=== PATIENT | female | born 1935 | race Caucasian/White ===

== ENCOUNTER 2017-01-03 15:52 | Inpatient (IN) | payer MEDICARE ==
[2017-01-03] MEDS ORDERED: MAGNESIUM HYDROXIDE 30 ML UDC PO PRN (16:46)
[2017-01-03] MEDS: OXYCODONE HCL 5 MG TABLET PO PRN (20:06)
[2017-01-03] MEDS ORDERED: OXYCODONE HCL 5 MG TABLET PO ONE (21:11)
[2017-01-03] MEDS ORDERED: MAGNESIUM OXIDE 400 MG TABLET PO SCH (22:00)
[2017-01-03] MEDS ORDERED: TRAZODONE 50 MG TABLET PO SCH (22:00)
[2017-01-03] MEDS: ACETAMINOPHEN 500 MG TABLET PO SCH (22:41)
[2017-01-03] MEDS: SENNOSIDES/DOCUSATE SODIUM UD CAPSULE PO SCH (22:41)
[2017-01-03] MEDS: TEMAZEPAM 15 MG CAPSULE PO PRN (22:41)
[2017-01-03] MEDS: SIMVASTATIN 20 MG TABLET PO SCH (22:42)
[2017-01-03] MEDS: ASPIRIN 325 MG TAB ENTERIC-COATED PO SCH (22:42)
[2017-01-04] MEDS: OXYCODONE HCL 5 MG TABLET PO PRN ×7 (01:48→22:21)
[2017-01-04] MEDS: ACETAMINOPHEN 500 MG TABLET PO SCH ×2 (06:41→14:43)
[2017-01-04] MEDS: LEVOTHYROXINE SODIUM 50 MCG TABLET PO SCH (06:41)
[2017-01-04] MEDS: PANTOPRAZOLE SODIUM 40 MG TABLET PO SCH (06:42)
--- NOTE | 2017-01-04 07:14 | History & Physical ---
History of Present Illness - Date Date of Service for History & Physical: 01/04/17 - History of Present Illness Admitting Diagnosis: post op LTKA History of Present Illness: 81yo female with physical deconditioning s/p total left knee arthroplasty. She has history of arthritis of the left knee, chronic low back pain on chronic opioid therapy, arthritis of the shoulders, high cholesterol, cosntipation, heartburn and hypothyroidism Patient presents to [facility] following LTKA on 01/02/17. The procedure was uncomplicated as was the the post-op course. Patient's pain was controlled on oral oxycodone 10mg po q4H in addition to her chronic fentanyl patch. She was discharged on POD #1. 01/04/17- Patient's pain has not been well controlled since transferring here. She had only received oxycodone 5mg throughout the night. Surgeon was contacted for clarification on pain medication. Since that time she has been doing better. pain is now back down to a 5. was able to participate with PT this morning. currently lives alone but plans to discharge home from [facility] to her son' s house for some time before returning to her home. Her daughter is planning on coming from [place] to stay for a while when she does eventually go home. General - Cognitive Patterns Orientation: Oriented x3 - Communication Preferred Language?: Uzbek Surgical Rn Required: No Level of Education: College Preferred Method of Learning: Seeing, Doing Comprehension Ability: No Impairment Able to Read: Yes Able to Write: Yes Select best description of speech pattern: Clear Speech Ability to express ideas and wants: Understood Understanding verbal content: Understands - Psychosocial Well-Being Usual Living Arrangement: Alone - Physical Functioning Activity Level: Up with assist x1 Turning: With partial assist ROM Ability: Moves all extremities Assistive Devices: 2 Wheel Walker Ambulation Ability: Needs Assist Bed Mobility: Needs Assist Transfer Ability: Needs Assist Bathing Ability: Needs Assist Personal Hygiene: Needs Assist Dressing Ability: Needs Assist Eating (Feeding) Ability: Independent Toileting Ability: Needs Assist Administer Own Medication: Dependent - Continence Bladder Pattern: Nocturia - Dental Status Unable to examine: No Broken or loosely fitting full or partial dentures: No No natural teeth or tooth fragment(s) (edentulous): No Abnormal mouth tissue (ulcers, masses, oral lesions, etc.): No Obvious or likely cavity or broken natural teeth: No Inflamed or bleeding gums or loose natural teeth: No Mouth/facial pain, discomfort or difficulty chewing: No - Nutrition Screening Poor oral intake > 1 week: No Unplanned weight loss in specified time frame: No Nutrition Support via tube feedings or parenteral nutrition: No Pressure Ulcer: No Significantly underweight define as BMI <18.5 kg/m2: No Albumin <2.5mg/dL: No Persistent nausea/vomiting/diarrhea >3 days: No Difficulty chewing/swallowing/mouth sores: No Admitting Diagnosis: No Nutrition Risk Score: Low Risk Past Medical History - SOCIAL HISTORY Smoking Status: Never smoker Alcohol Use: Rare Alcohol Use Comment: glass of wine at specila occasions - SURGICAL HISTORY Past Surgical History: left total knee arthroplasty with Marielos implants . left shoulder surgery 08/2016. right reverse shoulder arthroplasty 2013. left breast lumpectomy 1993. 2 part lower back surgery-has 2- 14" rods 2005. right bunionectomy. colonoscopy with polypectomy. ectopic surgery 1959. bilateral cataract surgery 2013. hysterectomy 2004. axillary lymph node dissection on left. tonsilectomy - RESPIRATORY Hx Respiratory Disorders: No - CARDIOVASCULAR Hx Cardio Disorders: No Comment:: hyperlipidemia - NEURO Hx Neuro Disorders: No - GI Hx GI Disorders: Yes Comment:: esophageal achlasia - Hx Genitourinary Disorders: No - ENDOCRINE Hx Endocrine Disorders: Yes Hx Diabetes: No Hx Thyroid Disease: Yes - MUSCULOSKELETAL Hx Arthritis: Yes - PSYCH Hx Psych Problems: No - HEMATOLOGY/ONCOLOGY Hx Hematology/Oncology Disorders: Yes Hx Cancer: Yes (left breast CA 1993) Hx Radiation Therapy: Yes Family Medical History Any Significant Family History?: No H&P Meds/Allergies - Allergies Allergies: Allergies Allergy/AdvReac Type Severity Reaction Status Date / Time Penicillins Allergy RASH Verified 01/03/17 19:28 Sulfa (Sulfonamide Allergy RASH Verified 01/03/17 19:28 Antibiotics) - Active Medications Active Medications: Current Medications Acetaminophen (Tylenol 500mg Tab) 1,000 mg PO Q8H [facility] Last Admin: 01/04/17 06:41 Dose: 1,000 mg Aspirin (Ecotrin (Ec)) 325 mg PO BID [facility] Last Admin: 01/03/17 22:42 Dose: 325 mg Calcium Carbonate/Glycine (Tums) 500 mg PO DAILY [facility] Celecoxib (Celebrex) 200 mg PO DAILY [facility] Fentanyl (Duragesic) 25 mcg TD Q72HR [facility] Stop: 01/12/17 10:01 Levothyroxine Sodium (Synthroid) 50 mcg PO DAILYTHY [facility] Last Admin: 01/04/17 06:41 Dose: 50 mcg Magnesium Hydroxide (Milk Of Magnesium) 30 ml PO QHS PRN PRN Reason: CONSTIPATION Miscellaneous (Remove Patch) 1 each TD Q72HR [facility] Oxycodone HCl (Oxy Ir) 5 mg PO Q4H PRN PRN Reason: Pain - General Last Admin: 01/04/17 05:37 Dose: 5 mg Pantoprazole Sodium (Protonix) 40 mg PO DAILYAC [facility] Last Admin: 01/04/17 06:42 Dose: 40 mg Senna/Docusate Sodium (Senna Plus) 1 each PO BID [facility] Last Admin: 01/03/17 22:41 Dose: 1 each Simvastatin (Zocor) 20 mg PO QHS [facility] Last Admin: 01/03/17 22:42 Dose: 20 mg Temazepam (Restoril) 15 mg PO QHS PRN PRN Reason: INSOMNIA Last Admin: 01/03/17 22:41 Dose: 15 mg Vitamin D (Vitamin D3) 1,000 unit PO DAILY [facility] Physical Exam - Vital Signs Vital Signs: Vital Signs - Last 24 Hrs Temp Pulse Resp BP Pulse Ox 01/03/17 19:35 99.4 F 86 16 118/83 97 - General General Appearance: Alert, Oriented x3, Cooperative, No acute distress - Head Head exam: Normal inspection - Eye Eye exam: Normal appearance, PERRL - Neck Neck exam: Normal inspection, Full ROM. negative: Tenderness - Respiratory Respiratory exam: Normal lung sounds bilaterally. negative: Respiratory distress - Cardiovascular Cardiovascular Exam: Regular rate, Normal rhythm, Normal heart sounds - GI/Abdominal GI/Abdominal exam: Soft, Normal bowel sounds. negative: Tenderness - Extremities Extremities exam: Normal inspection, Full ROM, Normal capillary refill, Other ( wound edges well approximated without erythema. ). negative: Tenderness Discharge Potential - Discharge Needs Community Services Used Prior to Admission: None Patient Discharge Plan Description: Return Home Community Services Needed at Discharge: Physical Therapy Plan - Swing Bed Certification Initial Certification Due: 01/03/17 14 Day Re-Cert Due: 01/17/17 44 Day Re-Cert Due: 02/16/17 74 Day Re-Cert Due: 03/18/17 - Detailed Diagnosis and Plan (1) Physical deconditioning Current Visit: Yes Status: Acute Base Code: R53.81 - OTHER MALAISE Comment : 01/04/17- patient is deconditioned due to recent hospitalization for left tka. -will work with pt/ot M-F to improve strength and physical function (2) S/P total knee arthroplasty Current Visit: Yes Status: Acute Base Code: Z96.659 - PRESENCE OF UNSPECIFIED ARTIFICIAL KNEE JOINT Comment: 01/04/17- patient's pain currently uncontrolled. Orthopedic surgeon international manager contacted for clarification on pain medication she was receiving while inpatient as she had multiple opioids ordered in addition to her fentanyl. She had been receiving oxycodone 10/325mg po Q4H which had been working well -will resume oxycoodone 10/325mg po q4H -fentanyl 25mcg will be due for replacement 01/05/17 at 1500 -she is to have her wound dressing changed q72H. it was changed today 01/04/17 at 0600. (3) DVT prophylaxis Current Visit: Yes Status: Acute Base Code: [id number] - Comment: 01/04/17- per ortho patient is on aspirin 325mg po bid -will encourage ambulation wtih pt/ot as tolerating (4) Full code status Current Visit: Yes Status: Acute Base Code: Z78.9 - OTHER SPECIFIED HEALTH STATUS Comment: 01/04/17- patient is full code
--- NOTE | 2017-01-04 07:15 | Swing Bed Certification/Recert ---
Initial Certification Due: 01/03/17 14 Day Re-Cert Due: 01/17/17 44 Day Re-Cert Due: 02/16/17 74 Day Re-Cert Due: 03/18/17 CERTIFICATION 3 CERTIFICATION OF PATIENT ADMISSION Required at time of admission. Due: 01/03/17 I certify that SNF services are required to be given on an inpatient basis because of the above named patient's need for usp care on a continuing basis for the condition(s) for which he/she was receiving inpatient hospital services prior to his/her transfer to the SNF. The patient's current needs for skilled care includes: [physical deconditioning making her unsafe for discharge home, s/p total left knee arthroplasty, pain management ] Ida Alberts 01/04/17
[2017-01-04] MEDS ORDERED: OXYCODONE HCL 5 MG TABLET PO PRN (07:36)
[2017-01-04] MEDS: SENNOSIDES/DOCUSATE SODIUM UD CAPSULE PO SCH ×2 (09:33→22:13)
[2017-01-04] MEDS: CHOLECALCIFEROL 1,000 UNIT TABLET PO SCH (09:33)
[2017-01-04] MEDS: CELECOXIB 100 MG CAPSULE PO SCH (09:33)
[2017-01-04] MEDS: CALCIUM CARBONATE 500 MG TAB.CHEW PO SCH (09:33)
[2017-01-04] MEDS: ASPIRIN 325 MG TAB ENTERIC-COATED PO SCH ×2 (09:33→22:13)
[2017-01-04] MEDS: POLYETHYLENE GLY 17 GM PACKET PO SCH (11:14)
--- NOTE | 2017-01-04 14:20 | Rehab Evaluation ---
Patient Information - Patient Information Diagnosis: Deconditioning s/p L TKA Ordered Treatment: PT Evaluate and Treat Status: Initial Evaluation Surgery: Yes (L TKA) Date of Surgery: 01/02/17 (at [facility] in [place], Dr. Montoya) History: Detail (Pt had progressive degeneration of L knee that required use of cane for ambulation prior to surgery.) Past Med/Malika Hx Detail: Detail Past Medical/Surgical Hx: PAST MEDICAL/SURGICAL HISTORY Past Surgical History left total knee arthroplasty with Marielos implants 01/02/17 left shoulder surgery 08/2016 right reverse shoulder arthroplasty 2013 left breast lumpectomy 1993 2 part lower back surgery-has 2- 14" rods 2005 right bunionectomy colonoscopy with polypectomy ectopic surgery 1959 bilateral cataract surgery 2013 hysterectomy 2004 axillary lymph node dissection on left tonsilectomy PMH - Respiratory Hx Respiratory Disorders No PMH - Cardiovascular Hx Cardiovascular Disorders No Comment: hyperlipidemia PMH - Neuro Hx Neurological Disorders No PMH - GI Hx Gastrointestinal Disorders Yes Comment: esophageal achlasia PMH - Hx Genitourinary Disorders No PMH - Endocrine Hx Endocrine Disorders Yes Hx Diabetes No Hx Thyroid Disease Yes PMH - Musculoskeletal Hx Arthritis Yes PMH - Psych Hx Psychiatric Problems No PMH - Hematology/Oncology Hx Hematology/Oncology Yes Disorders Hx Cancer Yes: left breast CA 1993 Hx Radiation Therapy Yes Premorbid Status: Detail (Pt was independent in all self-care, ADLs and IADLs, including driving. She has help for housekeeping, but did laundry, cooking. She had difficulty ascending/descending stairs because of the L knee, so doesn' t use the upstairs of her house very much. The person who does housekeeping can take things up/down. She has three steps into the house w/a handrail at one entrance to the home; another entrance has a ramp. 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 Her about 1-1/2 years ago. She wanted to be near her son while she recovered.) Precautions: Sun, Fall - Time With Patient Total Time Spent With Patient (Min): 50 Treatment Procedures: Detail (PT Evaluation) Subjective Information - Subjective Information Per Patient (Reports having had a very uncomfortable night and morning due to pain in the L knee. Was not able to eat much of her breakfast due to pain. Somewhat better now, but still uncomfortable.) Objective Data - Pain Pain Present: Yes Pain Intensity: 6 (L Knee) Pain Scale Used: Numeric (1 - 10) - Mental Status Patient Orientation: Oriented x3 - Visual Perception Appears within normal limits for therapeutic activities - ROM Not within normal limits (Appears to have near full extension of L knee, but has bulky wrap. She is able to achieve 90 degrees flexion easily while sitting on edge of bed.) - Strength/Tone Not within normal limits (3-/5 L hip flexion, abduction, adduction, extension, L knee extension, 3/5 L knee flexion, 4/5 L ankle df. R LE is grossly 4/5. Poor isometric recruitment of L quadriceps.) - Coordination Appears within normal limits for therapeutic activities - Bed Mobility Needs Assist (Required minimal assist for moving L LE over edge of bed when getting out of bed and getting back in, and for coming to sitting from supine. She was able to scoot in bed independently in long sitting, but needed verbal cues to bridge to scoot.) - Transfers Needs Assist (Verbal cues to place L foot forward when going to sit on toilet or bed. Came to standing from bed w/SBA, from toilet w/min assist.) - Balance Balance Sitting: Good Balance Standing: Fair (CGA for standing to manipulate clothing during toileting.) - Sensation Intact (Notes chronic diminished sensation L LE due to back surgery in 2005.) - Gait Detail (Ambulated w/front wheeled walker from bedside out into jacobson, to bathroom and back to bed w/CGA, SBA, WBAT L LE (about 45 feet total).) Therapy Assessment - Therapy Assessment Detail (Pt exhibits mobility impairments consistent w/post operative L TKA. She is a good candidate for short-term rehabilitation for safe return to home.) Patient Education - Patient Education Teaching Topic: Equipment Use, Exercise/Activity Response: Return Demonstration, Reinforcement Needed, Verbalize Understanding Teaching Method: Discussion, Demonstration, Handout Teaching Recipient: Patient Barriers To Learning: None Problem List - Problem List Physical Therapy Problem List: Detail (1. Difficulty w/bed mobility. 2. Supervision/assist required for transfers. 3. Difficulty walking. 4. LE weakness 5. Decreased activity tolerance.) Goals - Goals Physical Therapy Goals: 1. Independent w/bed mobility and sit/stand transfers to front-wheeled walker. 2. Safely and independently ambulate over household distances/surfaces w/front-wheeled walker. 3. Exhibit 4/5 strength or better in major muscle groups of L LE for stability w/ambulation. 4. Independent with basic home program. Prognosis - Prognosis Good Plan - Plan Physical Therapy Plan: Pt will be seen 1-2 times/week M-F to address above goals.
--- NOTE | 2017-01-04 15:56 | Physical Therapy Tx Note ---
Physical Therapy Tx Note - Treatment Note Tolerated: Good Total Time Spent With Patient: 30 Physical Therapy Tx Note: Detail (Patient states 5/10 pain in left knee. Patient transferred supine to sit independently. Patient transferred sit to and from stand CGA x1. Patient ambulated 13 feet with wheeled walker SBA x1. Patient transferred sit to and from stand CGA x1. Patient ambulated 30 feet with wheeled walker SBA x1. Patient performed the following exercises x10 reps each: seated heel raises, seated toe raises, seated marching, LAQ right, hamstring sets, quad sets, and heel slides. Patient transferred sit to and from stand CGA x1. Patient ambulated 5 feet with wheeled walker SBA x1. Patient tolerated treatment well. Patient displays decreased strength and endurance with hamstring sets, quad sets, and seated marching. Patient displays decreased knee flexion and extension ROM with seated heel slides. Patient required verbal cueing to keep walker close to body with ambulation and to straighten knee when transferring stand to sit. Patient was left seated in chair with call light within reach.) Physical Therapy Problem List: Detail (1. Difficulty w/bed mobility. 2. Supervision/assist required for transfers. 3. Difficulty walking. 4. LE weakness 5. Decreased activity tolerance.) Physical Therapy Goals: 1. Independent w/bed mobility and sit/stand transfers to front-wheeled walker. 2. Safely and independently ambulate over household distances/surfaces w/front-wheeled walker. 3. Exhibit 4/5 strength or better in major muscle groups of L LE for stability w/ambulation. 4. Independent with basic home program. Prognosis: Good Physical Therapy Plan: Pt will be seen 1-2 times/week M- to address above goals.
[2017-01-04] MEDS: SIMVASTATIN 20 MG TABLET PO SCH (22:15)
[2017-01-05] MEDS: ACETAMINOPHEN 500 MG TABLET PO SCH ×4 (01:25→23:36)
[2017-01-05] MEDS: TEMAZEPAM 15 MG CAPSULE PO PRN ×2 (02:04→23:35)
[2017-01-05] MEDS: OXYCODONE HCL 5 MG TABLET PO PRN ×5 (07:16→23:35)
[2017-01-05] MEDS: LEVOTHYROXINE SODIUM 50 MCG TABLET PO SCH (07:17)
[2017-01-05] MEDS: PANTOPRAZOLE SODIUM 40 MG TABLET PO SCH (07:17)
[2017-01-05] MEDS: FENTANYL 25MCG PATCH TD SCH (09:26)
[2017-01-05] MEDS: CELECOXIB 100 MG CAPSULE PO SCH (09:26)
[2017-01-05] MEDS: CALCIUM CARBONATE 500 MG TAB.CHEW PO SCH (09:26)
[2017-01-05] MEDS: SENNOSIDES/DOCUSATE SODIUM UD CAPSULE PO SCH ×2 (09:26→23:36)
[2017-01-05] MEDS: POLYETHYLENE GLY 17 GM PACKET PO SCH (09:26)
[2017-01-05] MEDS: CHOLECALCIFEROL 1,000 UNIT TABLET PO SCH (09:26)
[2017-01-05] MEDS: ASPIRIN 325 MG TAB ENTERIC-COATED PO SCH ×2 (09:26→23:35)
[2017-01-05] MEDS: REMOVE PATCH 1 EACH MISC TD SCH (09:27)
--- NOTE | 2017-01-05 09:53 | Rehab Evaluation ---
Patient Information - Patient Information Diagnosis: Deconditioning s/p L TKA Ordered Treatment: OT Evaluate and Treat Status: Initial Evaluation Surgery: Yes (L TKA) Date of Surgery: 01/02/17 (at [facility] in [place], Dr. Montoya) History: Detail (Pt had progressive degeneration of L knee that required use of cane for ambulation prior to surgery.) Past Medical/Surgical Hx: PAST MEDICAL/SURGICAL HISTORY Past Surgical History left total knee arthroplasty with Marielos implants 01/02/17 left shoulder surgery 08/2016 right reverse shoulder arthroplasty 2013 left breast lumpectomy 1993 2 part lower back surgery-has 2- 14" rods 2005 right bunionectomy colonoscopy with polypectomy ectopic surgery 1959 bilateral cataract surgery 2013 hysterectomy 2004 axillary lymph node dissection on left tonsilectomy PMH - Respiratory Hx Respiratory Disorders No PMH - Cardiovascular Hx Cardiovascular Disorders No Comment: hyperlipidemia PMH - Neuro Hx Neurological Disorders No Hx Seizures No PMH - GI Hx Gastrointestinal Disorders Yes Comment: esophageal achlasia PMH - Hx Genitourinary Disorders No PMH - Endocrine Hx Endocrine Disorders Yes Hx Diabetes No Hx Thyroid Disease Yes PMH - Musculoskeletal Hx Arthritis Yes PMH - Psych Hx Psychiatric Problems No PMH - Hematology/Oncology Hx Hematology/Oncology Yes Disorders Hx Cancer Yes: left breast CA 1993 Hx Radiation Therapy Yes Premorbid Status: Detail (Pt was independent in all self-care, ADLs and IADLs, including driving. She has help for housekeeping, but did some laundry, cooking. She had difficulty ascending/descending stairs because of the L knee, so doesn't use the upstairs of her house very much. The person who does housekeeping can take things up/down. She has three steps into the house w/a handrail at one entrance to the home; another entrance has a ramp. There is one step into the living room. She has a tub/shower combination with grab bars and prefers to take a tub bath. She has an elevated toilet with grab bars. 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 Her about 1-1/2 years ago. She wanted to be near her son while she recovered.) Precautions: [place], Fall - Time With Patient Total Time Spent With Patient (Min): 50 Treatment Procedures: Detail (OT eval low complexity) Subjective Information - Subjective Information Per Patient Objective Data - Pain Pain Present: Yes (11/20 left knee) - Mental Status Patient Orientation: Oriented x3 - Visual Perception Appears within normal limits for therapeutic activities - ROM Not within normal limits (Miguel UE AROM WNL except left shoulder which is limited to approx. 100 degrees flexion. She reports having shoulder surgery this spring and reports no functional limitations due to decreased ROM.) - Strength/Tone Within normal limits (Miguel UE MMT 4+/5 within AROM limitations.) - Coordination Appears within normal limits for therapeutic activities - Transfers Needs Assist (CG assist for sit to stand from toilet, chair height surfaces.) - Balance Balance Sitting: Good Balance Standing: Fair - Sensation Intact - Gait Detail (Pt able to ambulate 15 feet with 2 wheeled walker and CG assist.) - ADL's/IADL's Detail (Pt able to complete partial sponge bath at sink in sitting, requires assist for back and left lower leg/foot. Pt able to doff PJ top, bottom and slippers Indly, donned underpants with modified technique, pants with min assist to start over left foot and to button/zip, donned shirt Indly, max assist for socks and shoes.) Therapy Assessment - Therapy Assessment Detail (Decreased Ind with total body bathing and total body dressing, decreased endurance and decreased functional mobility needed for safe and Ind return home.) Problem List - Problem List Physical Therapy Problem List: Detail (1. Difficulty w/bed mobility. 2. Supervision/assist required for transfers. 3. Difficulty walking. 4. LE weakness 5. Decreased activity tolerance.) Occupational Therapy Problem List: Detail (1. Decreased Ind with total body dressing 2. Decreased Ind with bathing 3. Decreased endurance needed for safe and Ind ADLs. 4. Decreased Ind with functional mobility) Goals - Goals Physical Therapy Goals: 1. Independent w/bed mobility and sit/stand transfers to front-wheeled walker. 2. Safely and independently ambulate over household distances/surfaces w/front-wheeled walker. 3. Exhibit 4/5 strength or better in major muscle groups of L LE for stability w/ambulation. 4. Independent with basic home program. Occupational Therapy Goals: 1. Pt will be Ind with total body dressing 2. Pt will be Ind with bathing/showering 3. Pt will be Ind with bed mobility and ambulation to allow safe and Ind ADLs. 4. Pt will demonstrate improved endurance needed for safe and Ind ADLs. Prognosis - Prognosis Good Plan - Plan Physical Therapy Plan: Pt will be seen 1-2 times/week M- to address above goals. Occupational Therapy Plan: OT 2-4 times per week to address self cares, functional mobility, endurance to allow safe and Ind return home.
--- NOTE | 2017-01-05 14:42 | Physical Therapy Tx Note ---
Physical Therapy Tx Note - Treatment Note Tolerated: Good Total Time Spent With Patient: 25 Physical Therapy Tx Note: Detail (The patient was in bed when PT arrived. The patient ambulated 75 feet x 1 with wheeled walker and supervision for safety WBAT L LE. The patient's L knee AROM was measured, flexion 78 degrees, extension -10 degrees. The patient completed the following L LE strengthening exercises: gluteal sets, quad sets, hamstring sets, ankle pumps all x 10 reps, SAQ x 6 reps, assisted SLR x 3 reps, seated heel slides x 3 reps, supine heel slides x 8 reps. The patient's call light was placed in reach. The patient was isssued a home exercise program to complete over the weekend.) Physical Therapy Problem List: Detail (1. Difficulty w/bed mobility. 2. Supervision/assist required for transfers. 3. Difficulty walking. 4. LE weakness 5. Decreased activity tolerance.) Physical Therapy Goals: 1. Independent w/bed mobility and sit/stand transfers to front-wheeled walker. 2. Safely and independently ambulate over household distances/surfaces w/front-wheeled walker. 3. Exhibit 4/5 strength or better in major muscle groups of L LE for stability w/ambulation. 4. Independent with basic home program. Physical Therapy Plan: Pt will be seen 1-2 times/week M- to address above goals.
[2017-01-05] MEDS: SIMVASTATIN 20 MG TABLET PO SCH (23:36)
[2017-01-06] MEDS: OXYCODONE HCL 5 MG TABLET PO PRN ×4 (08:21→22:51)
[2017-01-06] MEDS: ACETAMINOPHEN 500 MG TABLET PO SCH ×3 (08:47→23:00)
[2017-01-06] MEDS: PANTOPRAZOLE SODIUM 40 MG TABLET PO SCH (08:47)
[2017-01-06] MEDS: LEVOTHYROXINE SODIUM 50 MCG TABLET PO SCH (08:47)
[2017-01-06] MEDS: SENNOSIDES/DOCUSATE SODIUM UD CAPSULE PO SCH ×2 (10:06→22:51)
[2017-01-06] MEDS: CALCIUM CARBONATE 500 MG TAB.CHEW PO SCH (10:06)
[2017-01-06] MEDS: ASPIRIN 325 MG TAB ENTERIC-COATED PO SCH ×2 (10:06→22:52)
[2017-01-06] MEDS: CELECOXIB 100 MG CAPSULE PO SCH (10:07)
[2017-01-06] MEDS: POLYETHYLENE GLY 17 GM PACKET PO SCH (10:07)
[2017-01-06] MEDS: CHOLECALCIFEROL 1,000 UNIT TABLET PO SCH (10:07)
[2017-01-06] MEDS: TRAMADOL HCL 50 MG TABLET PO PRN ×2 (11:18→17:26)
[2017-01-06] MEDS: SIMVASTATIN 20 MG TABLET PO SCH (22:52)
[2017-01-06] MEDS: TEMAZEPAM 15 MG CAPSULE PO PRN (22:52)
[2017-01-07] MEDS: TRAMADOL HCL 50 MG TABLET PO PRN ×2 (02:30→17:06)
[2017-01-07] MEDS: OXYCODONE HCL 5 MG TABLET PO PRN ×5 (04:10→22:36)
[2017-01-07] MEDS: ACETAMINOPHEN 500 MG TABLET PO SCH ×3 (08:44→22:41)
[2017-01-07] MEDS: PANTOPRAZOLE SODIUM 40 MG TABLET PO SCH (08:45)
[2017-01-07] MEDS: LEVOTHYROXINE SODIUM 50 MCG TABLET PO SCH (08:45)
[2017-01-07] MEDS: CALCIUM CARBONATE 500 MG TAB.CHEW PO SCH (10:11)
[2017-01-07] MEDS: CHOLECALCIFEROL 1,000 UNIT TABLET PO SCH (10:11)
[2017-01-07] MEDS: CELECOXIB 100 MG CAPSULE PO SCH (10:12)
[2017-01-07] MEDS: SENNOSIDES/DOCUSATE SODIUM UD CAPSULE PO SCH ×2 (10:12→22:37)
[2017-01-07] MEDS: POLYETHYLENE GLY 17 GM PACKET PO SCH (10:12)
[2017-01-07] MEDS: ASPIRIN 325 MG TAB ENTERIC-COATED PO SCH ×2 (10:12→22:37)
[2017-01-07] MEDS: TEMAZEPAM 15 MG CAPSULE PO PRN (22:37)
[2017-01-07] MEDS: SIMVASTATIN 20 MG TABLET PO SCH (22:38)
[2017-01-08] MEDS: OXYCODONE HCL 5 MG TABLET PO PRN ×5 (03:47→21:56)
[2017-01-08] MEDS: ACETAMINOPHEN 500 MG TABLET PO SCH ×3 (07:03→22:09)
[2017-01-08] MEDS: PANTOPRAZOLE SODIUM 40 MG TABLET PO SCH (07:04)
[2017-01-08] MEDS: LEVOTHYROXINE SODIUM 50 MCG TABLET PO SCH (07:04)
[2017-01-08] MEDS: FENTANYL 25MCG PATCH TD SCH (10:04)
[2017-01-08] MEDS: ASPIRIN 325 MG TAB ENTERIC-COATED PO SCH ×2 (10:05→21:57)
[2017-01-08] MEDS: POLYETHYLENE GLY 17 GM PACKET PO SCH (10:06)
[2017-01-08] MEDS: CELECOXIB 100 MG CAPSULE PO SCH (10:06)
[2017-01-08] MEDS: CALCIUM CARBONATE 500 MG TAB.CHEW PO SCH (10:06)
[2017-01-08] MEDS: SENNOSIDES/DOCUSATE SODIUM UD CAPSULE PO SCH ×2 (10:06→21:56)
[2017-01-08] MEDS: CHOLECALCIFEROL 1,000 UNIT TABLET PO SCH (10:06)
[2017-01-08] MEDS: REMOVE PATCH 1 EACH MISC TD SCH (11:03)
--- NOTE | 2017-01-08 12:04 | Occupational Therapy Tx Note ---
Occupational Therapy Tx Note - Treatment Note Tolerated: Good Total Time Spent With Patient: 35 (ther activity) Occupational Therapy Treatment Note: Detail (S: Pt supine, resting in bed. O: She reports washing up and getting dressed this am with assist for LE ADLs due to difficulty bending over. Supine to sit with HOB elevated and use of bed rail. Sit to stand and amb to surgical waiting room with 2 wheeled walker Indly. Pt rested for several minutes, c/o knee pain and weakness in leg. Pt sit to stand and amb back to room Indly. Completed 10 reps of bending to feet in sitting for knee flexion and to increase mobility needed for LE ADLs. A: Pt fatigued and reports increased knee soreness after exercise) Occupational Therapy Problem List: Detail (1. Decreased Ind with total body dressing 2. Decreased Ind with bathing 3. Decreased endurance needed for safe and Ind ADLs. 4. Decreased Ind with functional mobility) Occupational Therapy Goals: 1. Pt will be Ind with total body dressing 2. Pt will be Ind with bathing/showering 3. Pt will be Ind with bed mobility and ambulation to allow safe and Ind ADLs. 4. Pt will demonstrate improved endurance needed for safe and Ind ADLs. Prognosis: Good Occupational Therapy Plan: OT 2-4 times per week to address self cares, functional mobility, endurance to allow safe and Ind return home.
[2017-01-08] MEDS: TRAMADOL HCL 50 MG TABLET PO PRN (14:24)
--- NOTE | 2017-01-08 16:48 | Physical Therapy Tx Note ---
Physical Therapy Tx Note - Treatment Note Tolerated: Good Total Time Spent With Patient: 30 Physical Therapy Tx Note: Detail (The patient was up in chair when PT arrived. The patient completed LE strengthening exercies in a seated position: seated heel slides, quad sets, adductor squeezes, resisted hip abduction, LAQ all x 5 reps. (due to pain complaints). The patient ambulated 50 feet x 1 with wheeled walker independently WBAT on the L LE. The patient's L knee ROM was flexion 75 degrees.) Physical Therapy Problem List: Detail (1. Difficulty w/bed mobility. 2. Supervision/assist required for transfers. 3. Difficulty walking. 4. LE weakness 5. Decreased activity tolerance.) Physical Therapy Goals: 1. Independent w/bed mobility and sit/stand transfers to front-wheeled walker. 2. Safely and independently ambulate over household distances/surfaces w/front-wheeled walker. 3. Exhibit 4/5 strength or better in major muscle groups of L LE for stability w/ambulation. 4. Independent with basic home program. Physical Therapy Plan: Pt will be seen 1-2 times/week M-F to address above goals.
[2017-01-08] MEDS: TEMAZEPAM 15 MG CAPSULE PO PRN (21:56)
[2017-01-08] MEDS: SIMVASTATIN 20 MG TABLET PO SCH (21:57)
[2017-01-09] MEDS: PANTOPRAZOLE SODIUM 40 MG TABLET PO SCH (06:15)
[2017-01-09] MEDS: ACETAMINOPHEN 500 MG TABLET PO SCH ×3 (06:15→22:05)
[2017-01-09] MEDS: LEVOTHYROXINE SODIUM 50 MCG TABLET PO SCH (06:15)
[2017-01-09] MEDS: OXYCODONE HCL 5 MG TABLET PO PRN ×4 (06:16→19:51)
[2017-01-09] MEDS: TRAMADOL HCL 50 MG TABLET PO PRN (07:38)
[2017-01-09] MEDS: CELECOXIB 100 MG CAPSULE PO SCH (09:41)
[2017-01-09] MEDS: ASPIRIN 325 MG TAB ENTERIC-COATED PO SCH ×2 (09:42→22:06)
[2017-01-09] MEDS: POLYETHYLENE GLY 17 GM PACKET PO SCH (09:43)
[2017-01-09] MEDS: CALCIUM CARBONATE 500 MG TAB.CHEW PO SCH (09:43)
[2017-01-09] MEDS: SENNOSIDES/DOCUSATE SODIUM UD CAPSULE PO SCH ×2 (09:43→22:06)
[2017-01-09] MEDS: CHOLECALCIFEROL 1,000 UNIT TABLET PO SCH (09:44)
--- NOTE | 2017-01-09 11:49 | Occupational Therapy Tx Note ---
Occupational Therapy Tx Note - Treatment Note Tolerated: Good Total Time Spent With Patient: 45 (ADL) Occupational Therapy Treatment Note: Detail (S: Pt resting in bed, ready for shower. O: Supine to sit Indly. Amb to toilet and completed toileting Indly. Doffed PJ top, bottoms, slippers and underpants Indly. Pt completed showering in sitting with hand held shower and use of grab bar. Dried self Indly. Donned shirt, underpants, pants, socks and tennis shoes Indly using modified dressing technique. She was able to tie right shoe but required assist for left shoe due to knee stiffness and pain. Pt amb to sink and completed oral hygiene and brushed hair Indly. Pt amb back to chair with 2 wheeled walker Indly. A: Ind with functional mobility in room, Ind with showering in sitting, Ind with total body dressing with exception of tying shoe) Occupational Therapy Problem List: Detail (1. Decreased Ind with total body dressing 2. Decreased Ind with bathing 3. Decreased endurance needed for safe and Ind ADLs. 4. Decreased Ind with functional mobility) Occupational Therapy Goals: 1. Pt will be Ind with total body dressing 2. Pt will be Ind with bathing/showering 3. Pt will be Ind with bed mobility and ambulation to allow safe and Ind ADLs. 4. Pt will demonstrate improved endurance needed for safe and Ind ADLs. Prognosis: Good Occupational Therapy Plan: OT 2-4 times per week to address self cares, functional mobility, endurance to allow safe and Ind return home.
--- NOTE | 2017-01-09 13:56 | Physical Therapy Tx Note ---
Physical Therapy Tx Note - Treatment Note Tolerated: Good Total Time Spent With Patient: 40 Physical Therapy Tx Note: Detail (The patient had less complaints of L knee pain. The patient ambulated with wheeled walker 300 feet plus WBAT L LE independently. The patient completed LE exercises including: seated LAQ, hamstring curls x 7 reps, SAQ, heel slides with a ball, quad sets , hamstrign sets all x 7 reps, SLR unassisted x 3 reps. L knee AROM flexion 80 degrees, estension -10 degrees.) Physical Therapy Problem List: Detail (1. Difficulty w/bed mobility. 2. Supervision/assist required for transfers. 3. Difficulty walking. 4. LE weakness 5. Decreased activity tolerance.) Physical Therapy Goals: 1. Independent w/bed mobility and sit/stand transfers to front-wheeled walker. 2. Safely and independently ambulate over household distances/surfaces w/front-wheeled walker. 3. Exhibit 4/5 strength or better in major muscle groups of L LE for stability w/ambulation. 4. Independent with basic home program. Physical Therapy Plan: Pt will be seen 1-2 times/week M-F to address above goals.
[2017-01-09] MEDS: SIMVASTATIN 20 MG TABLET PO SCH (22:06)
[2017-01-09] MEDS: TEMAZEPAM 15 MG CAPSULE PO PRN (22:06)
[2017-01-10] MEDS: OXYCODONE HCL 5 MG TABLET PO PRN ×4 (01:41→16:00)
[2017-01-10] MEDS: TRAMADOL HCL 50 MG TABLET PO PRN (04:55)
[2017-01-10] MEDS: PANTOPRAZOLE SODIUM 40 MG TABLET PO SCH (08:20)
[2017-01-10] MEDS: LEVOTHYROXINE SODIUM 50 MCG TABLET PO SCH (08:21)
[2017-01-10] MEDS: ACETAMINOPHEN 500 MG TABLET PO SCH ×3 (08:21→22:21)
[2017-01-10] MEDS: ASPIRIN 325 MG TAB ENTERIC-COATED PO SCH ×2 (09:30→22:20)
[2017-01-10] MEDS: SENNOSIDES/DOCUSATE SODIUM UD CAPSULE PO SCH ×2 (09:30→22:20)
[2017-01-10] MEDS: CALCIUM CARBONATE 500 MG TAB.CHEW PO SCH (09:30)
[2017-01-10] MEDS: POLYETHYLENE GLY 17 GM PACKET PO SCH (09:30)
[2017-01-10] MEDS: CELECOXIB 100 MG CAPSULE PO SCH (09:30)
[2017-01-10] MEDS: CHOLECALCIFEROL 1,000 UNIT TABLET PO SCH (09:31)
--- NOTE | 2017-01-10 11:29 | Occupational Therapy Tx Note ---
Occupational Therapy Tx Note - Treatment Note Tolerated: Good Total Time Spent With Patient: 20 (ADL) Occupational Therapy Treatment Note: Detail (S: Pt finishing breakfast, reports knee is sore from increased activity yesterday. O: Pt able to doff PJ top, bottom, underpants and socks Indly. Donned shirt, underpants, pants, socks and tennis shoes Indly including tying tennis shoes. Pt able to demonstrate modified LE dressing techiques Indly. A: Pt is safe and Ind with total body dressing using modified dressing techniques) Occupational Therapy Problem List: Detail (1. Decreased Ind with total body dressing 2. Decreased Ind with bathing 3. Decreased endurance needed for safe and Ind ADLs. 4. Decreased Ind with functional mobility) Occupational Therapy Goals: 1. Pt will be Ind with total body dressing 2. Pt will be Ind with bathing/showering 3. Pt will be Ind with bed mobility and ambulation to allow safe and Ind ADLs. 4. Pt will demonstrate improved endurance needed for safe and Ind ADLs. Prognosis: Good Occupational Therapy Plan: OT 2-4 times per week to address self cares, functional mobility, endurance to allow safe and Ind return home.
--- NOTE | 2017-01-10 14:52 | Physical Therapy Tx Note ---
Physical Therapy Tx Note - Treatment Note Tolerated: Good Total Time Spent With Patient: 45 Physical Therapy Tx Note: Detail (Patient states 4/10 pain in left knee. Patient transferred supine to sit independently. Patinet transferred sit to and from stand SBA x1. Patient ambulated 182 feet with wheeled walker SBA x1, 132.5 feet with wheeled walker SBA x1. Patient transferred sit to and from stand SBA x1. Patient ambulated 5 feet x2 with wheeled walker SBA x1. Patient ascended and descended 6 steps CGA x1. Patient transferred sit to supine independently. Patient performed the following exercises x10 reps each: LAQ, quad sets, SLR, physioball knee flex/ext ROM, SAQ with physioball, and hamstring sets with physioball. Patient transferred supine to sit independently. Patient transferred sit to and from stand SBA x1. Patient ambulated 76 feet with wheeled walker SBA x1. Patient transferred sit to and from stand SBA x1. Patient tolerated treatment well. Patient displays decreased strength and endurance with quad sets, LAQ, SAQ with physioball, hamstring sets with physioball, and SLR. Patient displays decreased knee flexion ROM with physioball knee flex/ext ROM. Patient was left seated in chair with call light within reach.) Physical Therapy Problem List: Detail (1. Difficulty w/bed mobility. 2. Supervision/assist required for transfers. 3. Difficulty walking. 4. LE weakness 5. Decreased activity tolerance.) Physical Therapy Goals: 1. Independent w/bed mobility and sit/stand transfers to front-wheeled walker. 2. Safely and independently ambulate over household distances/surfaces w/front-wheeled walker. 3. Exhibit 4/5 strength or better in major muscle groups of L LE for stability w/ambulation. 4. Independent with basic home program. Prognosis: Good Physical Therapy Plan: Pt will be seen 1-2 times/week M- to address above goals.
[2017-01-10] MEDS ORDERED: HYDROCODONE/APAP 10/325 TABLET PO ONE (20:00)
[2017-01-10] MEDS: SIMVASTATIN 20 MG TABLET PO SCH (22:22)
[2017-01-10] MEDS: TEMAZEPAM 15 MG CAPSULE PO PRN (22:57)
[2017-01-11] MEDS: OXYCODONE HCL 5 MG TABLET PO PRN ×4 (03:55→21:36)
[2017-01-11] MEDS: ACETAMINOPHEN 500 MG TABLET PO SCH ×3 (06:24→22:54)
[2017-01-11] MEDS: LEVOTHYROXINE SODIUM 50 MCG TABLET PO SCH (06:24)
[2017-01-11] MEDS: PANTOPRAZOLE SODIUM 40 MG TABLET PO SCH (06:24)
--- NOTE | 2017-01-11 07:22 | Physician Progress Note ---
Subjective - Date Date of Progress Note: 01/11/17 - Admitting Diagnosis Diagnosis: post op LTKA - Subjective Nursing Care Plan Problem List Activity Intolerance (Swing Bed) Start: 01/03/17 19: 25 Freq: Status: Active Created 01/03/17 19:25 [facility]Rec: 01/03/17 19:25 [id number]) Altered Peripheral Tissue Perfusion Start: 01/03/17 19: 22 Freq: Status: Active Created 01/03/17 19:22 [facility]Rec: 01/03/17 19:22 [id number]) High Risk: Post-Op Complications Start: 01/03/17 19: 22 Freq: Status: Active Created 01/03/17 19:22 [facility]Rec: 01/03/17 19:22 [id number]) Impaired Skin Integrity Start: 01/03/17 19: 22 Freq: Status: Active Created 01/03/17 19:22 [facility]Rec: 01/03/17 19:22 [id number]) Knowledge Deficit (Swing Bed) Start: 01/03/17 19: 25 Freq: Status: Active Created 01/03/17 19:25 [facility]Rec: 01/03/17 19:25 [id number]) Knowledge Deficit: Total Knee Start: 01/03/17 19: 22 Freq: Status: Active Created 01/03/17 19:22 [facility] [place]Rec: 01/03/17 19:22 [id number]) Pain (Swing Bed) Start: 01/03/17 19: 25 Freq: Status: Active Created 01/03/17 19:25 [facility]Rec: 01/03/17 19:25 [id number]) General - Cognitive Patterns Speech: Normal Thought Process: Intact Thought Content: Normal - Communication Select best description of speech pattern: Clear Speech Ability to express ideas and wants: Understood Understanding verbal content: Understands - Mood and Behavior Patterns Appearance: Well Groomed Mood: Normal Attitude: Cooperative Motor Activity: Calm Affect: Appropriate Hallucinations: Denies - Physical Functioning Activity Level: Up with assist x1 Turning: With partial assist ROM Ability: Moves all extremities Assistive Devices: 2 Wheel Walker Ambulation Ability: Needs Assist Bed Mobility: Independent Transfer Ability: Independent Bathing Ability: Independent Personal Hygiene: Independent Dressing Ability: Independent Eating (Feeding) Ability: Independent Toileting Ability: Independent Administer Own Medication: Needs Assist - Continence Bowel Pattern: Normal for Patient Bladder Pattern: Normal Meds/Allergies - Allergies Allergies Allergy/AdvReac Type Severity Reaction Status Date / Time Penicillins Allergy RASH Verified 01/03/17 19:28 Sulfa (Sulfonamide Allergy RASH Verified 01/03/17 19:28 Antibiotics) - Active Medications Current Medications Acetaminophen (Tylenol 500mg Tab) 1,000 mg PO Q8H [facility] Last Admin: 01/11/17 06:24 Dose: 1,000 mg Aspirin (Ecotrin (Ec)) 325 mg PO BID [facility] Last Admin: 01/10/17 22:20 Dose: 325 mg Calcium Carbonate/Glycine (Tums) 500 mg PO DAILY [facility] Last Admin: 01/10/17 09:30 Dose: 500 mg Celecoxib (Celebrex) 200 mg PO DAILY [facility] Last Admin: 01/10/17 09:30 Dose: 200 mg Fentanyl (Duragesic) 25 mcg TD Q72HR [facility] Stop: 01/12/17 10:01 Last Admin: 01/08/17 10:04 Dose: 25 mcg Levothyroxine Sodium (Synthroid) 50 mcg PO DAILYTHY [facility] Last Admin: 01/11/17 06:24 Dose: 50 mcg Magnesium Hydroxide (Milk Of Magnesium) 30 ml PO QHS PRN PRN Reason: CONSTIPATION Miscellaneous (Remove Patch) 1 each TD Q72HR [facility] Last Admin: 01/08/17 11:03 Dose: 1 each Oxycodone HCl (Oxy Ir) 5 mg PO Q4H PRN PRN Reason: Pain - General Last Admin: 01/06/17 22:51 Dose: 5 mg Oxycodone HCl (Oxy Ir) 10 mg PO Q4H PRN PRN Reason: Pain - Severe (8-10) Last Admin: 01/11/17 03:55 Dose: 10 mg Pantoprazole Sodium (Protonix) 40 mg PO DAILYAC [facility] Last Admin: 01/11/17 06:24 Dose: 40 mg Polyethylene Glycol (Miralax) 17 gm PO DAILY [facility] Last Admin: 01/10/17 09:30 Dose: 17 gm Senna/Docusate Sodium (Senna Plus) 1 each PO BID [facility] Last Admin: 01/10/17 22:20 Dose: 1 each Simvastatin (Zocor) 20 mg PO QHS [facility] Last Admin: 01/10/17 22:22 Dose: 20 mg Temazepam (Restoril) 15 mg PO QHS PRN PRN Reason: INSOMNIA Last Admin: 01/10/17 22:57 Dose: 15 mg Tramadol HCl (Ultram) 50 mg PO Q8H PRN PRN Reason: pain Last Admin: 01/10/17 04:55 Dose: 50 mg Vitamin D (Vitamin D3) 1,000 unit PO DAILY [facility] Last Admin: 01/10/17 09:31 Dose: 1,000 unit Objective - Vital Signs Vital Signs: Vital Signs - Last 24 Hrs Temp Pulse Resp BP Pulse Ox 01/10/17 10:00 98.1 F 79 18 135/68 95 - General General Appearance: Alert, Oriented x3, Cooperative, No acute distress - Head Head exam: Normal inspection - Eye Eye exam: Normal appearance, PERRL - Neck Neck exam: Normal inspection, Full ROM. negative: Tenderness - Respiratory Respiratory exam: Normal lung sounds bilaterally. negative: Respiratory distress - Cardiovascular Cardiovascular Exam: Regular rate, Normal rhythm, Normal heart sounds - GI/Abdominal GI/Abdominal exam: Soft, Normal bowel sounds. negative: Tenderness - Extremities Extremities exam: Normal inspection, Full ROM, Normal capillary refill, Other ( wound edges well approximated without erythema. ). negative: Tenderness Discharge Potential - Discharge Needs Community Services Used Prior to Admission: None Patient Discharge Plan Description: Return Home Community Services Needed at Discharge: Physical Therapy Plan - Swing Bed Certification Initial Certification Due: 01/03/17 14 Day Re-Cert Due: 01/17/17 44 Day Re-Cert Due: 02/16/17 74 Day Re-Cert Due: 03/18/17
--- NOTE | 2017-01-11 09:28 | Discharge Summary ---
Providers Discharge Summary Date: 01/11/17 Date of admission: 01/03/17 19:08 Expected Date of Discharge: 01/13/17 Attending physician: RAVEN BRISCOE Physical Exam - Vital Signs Vital Signs: Vital Signs - Last 24 Hrs Temp Pulse Resp BP Pulse Ox 01/10/17 10:00 98.1 F 79 18 135/68 95 - General General Appearance: Alert, Oriented x3, Cooperative, No acute distress - Head Head exam: Normal inspection - Eye Eye exam: Normal appearance, PERRL - Neck Neck exam: Normal inspection, Full ROM. negative: Tenderness - Respiratory Respiratory exam: Normal lung sounds bilaterally. negative: Respiratory distress - Cardiovascular Cardiovascular Exam: Regular rate, Normal rhythm, Normal heart sounds - GI/Abdominal GI/Abdominal exam: Soft, Normal bowel sounds. negative: Tenderness - Extremities Extremities exam: Normal inspection, Full ROM, Normal capillary refill, Other ( wound edges well approximated without erythema. ). negative: Tenderness Hospitalization - Hospitalization Admission Diagnosis: post op LTKA - Problem List/Discharge Diagnosis (1) Full code status Current Visit: Yes Status: Acute Base Code: Z78.9 - OTHER SPECIFIED HEALTH STATUS Comment: 01/13/17- patient remained full code (2) Physical deconditioning Current Visit: Yes Status: Acute Base Code: R53.81 - OTHER MALAISE Comment : 01/13/17- patient is deconditioned due to recent hospitalization for left tka. -continue home PT/OT to improve strength and physical function (3) S/P total knee arthroplasty Current Visit: Yes Status: Acute Base Code: Z96.659 - PRESENCE OF UNSPECIFIED ARTIFICIAL KNEE JOINT Comment: 01/13/17- - home health services- PT/OT/nursing - resume adequate pain control ( oxycoodone 10/325mg po q4H & fentanyl 25mcg Q 72 H- New patch placed 01/11/17) - she is to have her wound dressing changed q72H. - follow up with PCP 01/22/17 as scheduled. - Hospitalization Course Disposition: Home Health Service Hospital Course: 81yo female with physical deconditioning s/p total left knee arthroplasty. She has history of arthritis of the left knee, chronic low back pain on chronic opioid therapy, arthritis of the shoulders, high cholesterol, cosntipation, heartburn and hypothyroidism Patient presents to [facility] for [facility] following LTKA on 01/02/17. The procedure was uncomplicated as was the the post-op course. Patient's pain was controlled on oral oxycodone 10mg po q4H in addition to her chronic fentanyl patch. She was discharged on POD #1. 01/04/17- Patient's pain has not been well controlled since transferring here. She had only received oxycodone 5mg throughout the night. Surgeon was contacted for clarification on pain medication. Since that time she has been doing better. pain is now back down to a 5. was able to participate with PT this morning. currently lives alone but plans to discharge home from [facility] to her son' s house for some time before returning to her home. Her daughter is planning on coming from [place] to stay for a while when she does eventually go home. 01/11/17- patient sitting in wheel chair. uncomfortably due to 6/10 pain. she has not received morning pain medication and started therapy w/o this. otherwise, she states she feels well. normal GI/ output. normal appetite. Therapy feels as if she's doing very well from that stand point. tolerated stairs yesterday. Condition at Discharge: (1) Good Discharge Plan - Discharge Instructions Activity at Discharge: As Per Physical Therapy Diet at Discharge: Regular Diet
[2017-01-11] MEDS: ASPIRIN 325 MG TAB ENTERIC-COATED PO SCH ×2 (10:14→21:36)
[2017-01-11] MEDS: FENTANYL 25MCG PATCH TD SCH (10:14)
[2017-01-11] MEDS: CELECOXIB 100 MG CAPSULE PO SCH (10:14)
[2017-01-11] MEDS: REMOVE PATCH 1 EACH MISC TD SCH (10:15)
[2017-01-11] MEDS: POLYETHYLENE GLY 17 GM PACKET PO SCH (10:15)
[2017-01-11] MEDS: CALCIUM CARBONATE 500 MG TAB.CHEW PO SCH (10:16)
[2017-01-11] MEDS: SENNOSIDES/DOCUSATE SODIUM UD CAPSULE PO SCH ×2 (10:16→21:37)
[2017-01-11] MEDS: CHOLECALCIFEROL 1,000 UNIT TABLET PO SCH (10:16)
--- NOTE | 2017-01-11 17:07 | Physical Therapy Tx Note ---
Physical Therapy Tx Note - Treatment Note Tolerated: Good Total Time Spent With Patient: 30 Physical Therapy Tx Note: Detail (Patient states 5.5/10 pain in left knee. Patient was dressing in restroom when [employer] arrived. Patient ambulated 13 feet with wheeled walker SBA x1. Patient transferred sit to and from stand SBA x1. Patient ambulated 182 feet with wheeled walker SBA x1. Due to nursing getting medications for patient and patient needing a restroom break had to discontinue treatment, and continue after a break. Patient was supine in bed when [employer] arrived again. Patient states 4.5/10 pain in left knee. Patient transferred supine to sit independently. Patient transferred sit to and from stand SBA x1. Patient ambulated 364 feet with wheeled walker SBA x1. Patient performed the following exercises x10 reps each: seated heel raises, seated toe raises, seated hip flexion, LAQ, quad sets, and seated heel slides. Patient tolerated treatment well. Patient displays decreased strength and endurance with quad sets, seated hip flexion, and LAQ. Patient displays decreased knee flexion/ extension ROM with seated heel slides. Patient was instructed to do exercises throughout the day. Patient was left seated in chair with call light within reach.) Physical Therapy Problem List: Detail (1. Difficulty w/bed mobility. 2. Supervision/assist required for transfers. 3. Difficulty walking. 4. LE weakness 5. Decreased activity tolerance.) Physical Therapy Goals: 1. Independent w/bed mobility and sit/stand transfers to front-wheeled walker. 2. Safely and independently ambulate over household distances/surfaces w/front-wheeled walker. 3. Exhibit 4/5 strength or better in major muscle groups of L LE for stability w/ambulation. 4. Independent with basic home program. Prognosis: Good Physical Therapy Plan: Pt will be seen 1-2 times/week M- to address above goals.
[2017-01-11] MEDS: SIMVASTATIN 20 MG TABLET PO SCH (21:37)
[2017-01-11] MEDS: TEMAZEPAM 15 MG CAPSULE PO PRN (22:54)
[2017-01-12] MEDS: OXYCODONE HCL 5 MG TABLET PO PRN ×4 (03:17→19:59)
[2017-01-12] MEDS: TRAMADOL HCL 50 MG TABLET PO PRN (04:17)
--- NOTE | 2017-01-12 05:09 | Discharge Summary ---
Providers Discharge Summary Date: 01/12/17 Date of admission: 01/03/17 19:08 Expected Date of Discharge: 01/13/17 Attending physician: RAVEN BRISCOE Physical Exam - Vital Signs Vital Signs: Vital Signs - Last 24 Hrs Temp Pulse Resp BP Pulse Ox 01/11/17 10:00 97.5 F L 93 H 16 93/59 96 - General General Appearance: Alert, Oriented x3, Cooperative, No acute distress - Head Head exam: Normal inspection - Eye Eye exam: Normal appearance, PERRL - Neck Neck exam: Normal inspection, Full ROM. negative: Tenderness - Respiratory Respiratory exam: Normal lung sounds bilaterally. negative: Respiratory distress - Cardiovascular Cardiovascular Exam: Regular rate, Normal rhythm, Normal heart sounds - GI/Abdominal GI/Abdominal exam: Soft, Normal bowel sounds. negative: Tenderness - Extremities Extremities exam: Normal inspection, Full ROM, Normal capillary refill, Other ( wound edges well approximated without erythema. ). negative: Tenderness Hospitalization - Hospitalization Admission Diagnosis: post op LTKA - Problem List (1) Physical deconditioning Current Visit: Yes Status: Acute Base Code: R53.81 - OTHER MALAISE Comment : 01/13/17- patient is deconditioned due to recent hospitalization for left tka. -continue home PT/OT to improve strength and physical function (2) S/P total knee arthroplasty Current Visit: Yes Status: Acute Base Code: Z96.659 - PRESENCE OF UNSPECIFIED ARTIFICIAL KNEE JOINT Comment: 01/13/17- - home health services- PT/OT/nursing - resume adequate pain control ( oxycoodone 10/325mg po q4H & fentanyl 25mcg Q 72 H- New patch placed 01/11/17) - she is to have her wound dressing changed q72H. - follow up with PCP 01/22/17 as scheduled. (3) Full code status Current Visit: Yes Status: Acute Base Code: Z78.9 - OTHER SPECIFIED HEALTH STATUS Comment: 01/13/17- patient remained full code - Hospitalization Course Disposition: Home Health Service Hospital Course: 81yo female with physical deconditioning s/p total left knee arthroplasty. She has history of arthritis of the left knee, chronic low back pain on chronic opioid therapy, arthritis of the shoulders, high cholesterol, cosntipation, heartburn and hypothyroidism Patient presents to [facility] following LTKA on 01/02/17. The procedure was uncomplicated as was the the post-op course. Patient's pain was controlled on oral oxycodone 10mg po q4H in addition to her chronic fentanyl patch. She was discharged on POD #1. 01/04/17- Patient's pain has not been well controlled since transferring here. She had only received oxycodone 5mg throughout the night. Surgeon was contacted for clarification on pain medication. Since that time she has been doing better. pain is now back down to a 5. was able to participate with PT this morning. currently lives alone but plans to discharge home from [facility] to her son' s house for some time before returning to her home. Her daughter is planning on coming from [place] to stay for a while when she does eventually go home. 01/11/17- patient sitting in wheel chair. uncomfortably due to 6/10 pain. she has not received morning pain medication and started therapy w/o this. otherwise, she states she feels well. normal GI/ output. normal appetite. Therapy feels as if she's doing very well from that stand point. tolerated stairs yesterday. 01/13- patient feeling well. pain controlled. no new concerns. would like prescriptions refilled. excited to get home. Condition at Discharge: (1) Good Discharge Medications - Discharge Medications Prescriptions: Simvastatin [Zocor] 20 mg PO QHS #30 Temazepam [Restoril] 15 mg PO QHS PRN #9 cap PRN Reason: Insomnia Acetaminophen [Tylenol 500Mg Tab] 1,000 mg PO Q8H #90 Calcium Carbonate [Tums] 500 mg PO DAILY #30 tab.chew Celecoxib [Celebrex] 200 mg PO DAILY #60 cap Fentanyl [Duragesic] 25 mcg TD Q72H #3 patch Levothyroxine Sodium [Synthroid] 50 mcg PO DAILYTHY #30 Oxycodone HCl [Oxy Ir] 10 mg PO Q4H PRN #54 PRN Reason: Pain - Severe (8-10) Pantoprazole Sodium [Protonix] 40 mg PO DAILYAC #30 Polyethylene Glycol 3350 [Miralax] 17 gm PO DAILY 30 Days Sennosides/Docusate Sodium [Senna Plus] 1 each PO BID #60 Tramadol HCl [Ultram] 50 mg PO Q8H PRN #20 PRN Reason: pain Home Medications: Ambulatory Orders Acetaminophen [Tylenol 500Mg Tab] 1,000 mg PO Q8H #90 01/13/17 [Last Taken Unknown] Calcium Carbonate [Tums] 500 mg PO DAILY #30 tab.chew 01/13/17 [Last Taken Unknown] Celecoxib [Celebrex] 200 mg PO DAILY #60 cap 01/13/17 [Last Taken Unknown] Fentanyl [Duragesic] 25 mcg TD Q72H #3 patch 01/13/17 [Last Taken Unknown] Levothyroxine Sodium [Synthroid] 50 mcg PO DAILYTHY #30 01/13/17 [Last Taken Unknown] Oxycodone HCl [Oxy Ir] 10 mg PO Q4H PRN #54 01/13/17 [Last Taken Unknown] Pantoprazole Sodium [Protonix] 40 mg PO DAILYAC #30 01/13/17 [Last Taken Unknown] Polyethylene Glycol 3350 [Miralax] 17 gm PO DAILY 30 Days 01/13/17 [Last Taken Unknown] Sennosides/Docusate Sodium [Senna Plus] 1 each PO BID #60 01/13/17 [Last Taken Unknown] Simvastatin [Zocor] 20 mg PO QHS #30 01/13/17 [Last Taken Unknown] Temazepam [Restoril] 15 mg PO QHS PRN #9 cap 01/13/17 [Last Taken Unknown] Tramadol HCl [Ultram] 50 mg PO Q8H PRN #20 01/13/17 [Last Taken Unknown] Discharge Plan - Discharge Instructions Activity at Discharge: As Per Physical Therapy Diet at Discharge: Regular Diet Additional Instructions: continue medications. fill prescriptions. follow up with family doctor on January 22 as scheduled. return as needed
[2017-01-12] MEDS: ACETAMINOPHEN 500 MG TABLET PO SCH ×3 (07:59→22:03)
[2017-01-12] MEDS: PANTOPRAZOLE SODIUM 40 MG TABLET PO SCH (07:59)
[2017-01-12] MEDS: LEVOTHYROXINE SODIUM 50 MCG TABLET PO SCH (07:59)
[2017-01-12] MEDS: CELECOXIB 100 MG CAPSULE PO SCH (09:03)
[2017-01-12] MEDS: POLYETHYLENE GLY 17 GM PACKET PO SCH (09:04)
[2017-01-12] MEDS: CALCIUM CARBONATE 500 MG TAB.CHEW PO SCH (09:04)
[2017-01-12] MEDS: SENNOSIDES/DOCUSATE SODIUM UD CAPSULE PO SCH ×2 (09:04→22:02)
[2017-01-12] MEDS: ASPIRIN 325 MG TAB ENTERIC-COATED PO SCH ×2 (09:04→22:02)
[2017-01-12] MEDS: CHOLECALCIFEROL 1,000 UNIT TABLET PO SCH (09:04)
--- NOTE | 2017-01-12 11:37 | Rehab Discharge Summary ---
Patient Information - Patient Information Diagnosis: Deconditioning s/p L TKA Ordered Treatment: PT Evaluate and Treat Surgery: Yes (L TKA) Date of Surgery: 01/02/17 (at [facility] in [place], Dr. Montoya) History: Detail (Pt had progressive degeneration of L knee that required use of cane for ambulation prior to surgery.) Past Med/Malika Hx Detail: Detail Past Medical/Surgical Hx: PAST MEDICAL/SURGICAL HISTORY Past Surgical History left total knee arthroplasty with Marielos implants 01/02/17 left shoulder surgery 08/2016 right reverse shoulder arthroplasty 2013 left breast lumpectomy 1993 2 part lower back surgery-has 2- 14" rods 2005 right bunionectomy colonoscopy with polypectomy ectopic surgery 1959 bilateral cataract surgery 2013 hysterectomy 2004 axillary lymph node dissection on left tonsilectomy PMH - Respiratory Hx Respiratory Disorders No PMH - Cardiovascular Hx Cardiovascular Disorders No Comment: hyperlipidemia PMH - Neuro Hx Neurological Disorders No Hx Seizures No PMH - GI Hx Gastrointestinal Disorders Yes Comment: esophageal achlasia PMH - Hx Genitourinary Disorders No PMH - Endocrine Hx Endocrine Disorders Yes Hx Diabetes No Hx Thyroid Disease Yes PMH - Musculoskeletal Hx Arthritis Yes PMH - Psych Hx Psychiatric Problems No PMH - Hematology/Oncology Hx Hematology/Oncology Yes Disorders Hx Cancer Yes: left breast CA 1993 Hx Radiation Therapy Yes Premorbid Status: Detail (Pt was independent in all self-care, ADLs and IADLs, including driving. She has help for housekeeping, but did some laundry, cooking. She had difficulty ascending/descending stairs because of the L knee, so doesn't use the upstairs of her house very much. The person who does housekeeping can take things up/down. She has three steps into the house w/a handrail at one entrance to the home; another entrance has a ramp. There is one step into the living room. She has a tub/shower combination with grab bars and prefers to take a tub bath. She has an elevated toilet with grab bars. 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 She manages the finances of the farm, and her son Alex in [place] is involved in the management of the farm as well. Her about 1-1/2 years ago. She wanted to be near her son while she recovered.) Precautions: [place], Fall - Time With Patient Treatment Procedures: Detail (Re-evaluation, therapuetic activity.) Subjective Information - Subjective Information Per Patient (The patient has level 6 pain in L knee.) Objective Data - Mental Status Patient Orientation: Oriented x3 - Visual Perception Appears within normal limits for therapeutic activities - ROM Not within normal limits (The patient's L knee AROM is flexion 89 degrees, extension seated -20 degrees, supine -5 degrees.) - Strength/Tone Not within normal limits (The patient's L LE strength was hip flexors 4-/5, hip abductors, adductors and extensors 4/5, knee extensors 3+/5, knee flexors 4-/5 , ankle musculature 4+/5. Improved recruitment of L quadriceps.) - Bed Mobility Independent - Transfers Independent (The patient is independent with sit to and from stand transfer and toilet transfer.) - Balance Balance Sitting: Good Balance Standing: Good - Gait Detail (The patient ambulates with wheeled walker a distance of 300 feet plus independently WBAT on the L LE. The patient ambulated on the stairs with railings with CG/supervision for safety.) Therapy Assessment - Therapy Assessment Detail (The patient is independent with mobility and ambulation and has progressed well with L knee AROM and L LE strength.) Patient Education - Patient Education Teaching Topic: Exercise/Activity (LE strengthening exercises.) Response: Return Demonstration Teaching Method: Handout Teaching Recipient: Patient Barriers To Learning: Age Related Problem List - Problem List Physical Therapy Problem List: Detail (1. Difficulty w/bed mobility. 2. Supervision/assist required for transfers. 3. Difficulty walking. 4. LE weakness 5. Decreased activity tolerance.) Occupational Therapy Problem List: Detail (1. Decreased Ind with total body dressing 2. Decreased Ind with bathing 3. Decreased endurance needed for safe and Ind ADLs. 4. Decreased Ind with functional mobility) Goals - Goals Physical Therapy Goals: GOALS MET: 1. Independent w/bed mobility and sit/stand transfers to front-wheeled walker. 2. Safely and independently ambulate over household distances/surfaces w/front-wheeled walker. 4. Independent with basic home program. GOAL PARTIALLY MET: 3. Exhibit 4/5 strength or better in major muscle groups of L LE for stability w/ambulation. Occupational Therapy Goals: 1. Pt will be Ind with total body dressing 2. Pt will be Ind with bathing/showering 3. Pt will be Ind with bed mobility and ambulation to allow safe and Ind ADLs. 4. Pt will demonstrate improved endurance needed for safe and Ind ADLs. Prognosis - Prognosis Good Plan - Plan Physical Therapy Plan: The PT is to discharge form [facility] on 01/13/17 to home and will receive Home PT. The patient will be seen for one more PT visit prior to discharge. Occupational Therapy Plan: OT 2-4 times per week to address self cares, functional mobility, endurance to allow safe and Ind return home.
--- NOTE | 2017-01-12 15:14 | Physical Therapy Tx Note ---
Physical Therapy Tx Note - Treatment Note Tolerated: Good Total Time Spent With Patient: 40 Physical Therapy Tx Note: Detail (Patient states 5/10 pain in left knee. Patient transferred supine to sit independently. Patient transferred sit to and from stand independently. Patient ambulated 380 feet with wheeled walker SBA x1. Patient ambulated 75 feet with LBQC SBA x1. Reviewed stair training with cane. Patient transferred sit to supine independently. Patient performed the following exercises x10 reps each: standing heel raises, standing toe raises , LAQ, seated hamstring curls with yellow theraband, SAQ, quad sets, physioball knee flexion/extension ROM, and SLR x5. Patient transferred supine to sit independently. Patient ambulated 75.5 feet with wheeled walker SBA x1. Patient transferred sit to and from stand independently. Patient tolerated treatment well. Patient required verbal cueing to go slow and coordinate ambulation with cane. Patient displays decreased knee flexion/extension ROM with physioball knee ROM. Patient displays strength and endurance with quad sets, LAQ, hamstring curls with theraband, and SAQ. Patient was left seated on edge of bed with call light within reach.) Physical Therapy Problem List: Detail (1. Difficulty w/bed mobility. 2. Supervision/assist required for transfers. 3. Difficulty walking. 4. LE weakness 5. Decreased activity tolerance.) Physical Therapy Goals: GOALS MET: 1. Independent w/bed mobility and sit/stand transfers to front-wheeled walker. 2. Safely and independently ambulate over household distances/surfaces w/front-wheeled walker. 4. Independent with basic home program. GOAL PARTIALLY MET: 3. Exhibit 4/5 strength or better in major muscle groups of L LE for stability w/ambulation. Prognosis: Good Physical Therapy Plan: The PT is to discharge form [facility] on 01/13/17 to home and will receive Home PT. The patient will be seen for one more PT visit prior to discharge.
--- NOTE | 2017-01-12 15:29 | Rehab Discharge Summary ---
Patient Information - Patient Information Diagnosis: Deconditioning s/p L TKA Ordered Treatment: OT Evaluate and Treat Surgery: Yes (L TKA) Date of Surgery: 01/02/17 (at [facility] in [place], Dr. Montoya) History: Detail (Pt had progressive degeneration of L knee that required use of cane for ambulation prior to surgery.) Past Medical/Surgical Hx: PAST MEDICAL/SURGICAL HISTORY Past Surgical History left total knee arthroplasty with Marielos implants 01/02/17 left shoulder surgery 08/2016 right reverse shoulder arthroplasty 2013 left breast lumpectomy 1993 2 part lower back surgery-has 2- 14" rods 2005 right bunionectomy colonoscopy with polypectomy ectopic surgery 1959 bilateral cataract surgery 2013 hysterectomy 2004 axillary lymph node dissection on left tonsilectomy PMH - Respiratory Hx Respiratory Disorders No PMH - Cardiovascular Hx Cardiovascular Disorders No Comment: hyperlipidemia PMH - Neuro Hx Neurological Disorders No Hx Seizures No PMH - GI Hx Gastrointestinal Disorders Yes Comment: esophageal achlasia PMH - Hx Genitourinary Disorders No PMH - Endocrine Hx Endocrine Disorders Yes Hx Diabetes No Hx Thyroid Disease Yes PMH - Musculoskeletal Hx Arthritis Yes PMH - Psych Hx Psychiatric Problems No PMH - Hematology/Oncology Hx Hematology/Oncology Yes Disorders Hx Cancer Yes: left breast CA 1993 Hx Radiation Therapy Yes Premorbid Status: Detail (Pt was independent in all self-care, ADLs and IADLs, including driving. She has help for housekeeping, but did some laundry, cooking. She had difficulty ascending/descending stairs because of the L knee, so doesn't use the upstairs of her house very much. The person who does housekeeping can take things up/down. She has three steps into the house w/a handrail at one entrance to the home; another entrance has a ramp. There is one step into the living room. She has a tub/shower combination with grab bars and prefers to take a tub bath. She has an elevated toilet with grab bars. 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 Her about 1-1/2 years ago. She wanted to be near her son while she recovered.) Precautions: [place], Fall Subjective Information - Subjective Information Per Patient Objective Data - Pain Pain Present: Yes (4-6 depending on activity level - left knee) - Mental Status Patient Orientation: Oriented x3 - Visual Perception Appears within normal limits for therapeutic activities - ROM Not within normal limits (Miguel UE AROM WNL except left shoulder which is limited due to premorbid surgery. Pt demonstrates no significant functional limitations due to decreased shoulder ROM.) - Strength/Tone Within normal limits (Miguel UE MMT 4+/5 within her AROM limitations.) - Coordination Appears within normal limits for therapeutic activities - Bed Mobility Independent (Ind with supine to sit and sit to supine.) - Transfers Independent (Ind with sit to stand from various level surfaces.) - Balance Balance Sitting: Good Balance Standing: Good - Sensation Intact - Gait Detail (Pt ambulating household distances with 2 wheeled walker Indly.) - ADL's/IADL's Detail (Pt demonstrates Ind with showering in sitting and Ind with total body dressing, grooming/hygiene and toileting.) Therapy Assessment - Therapy Assessment Detail (Pt is Ind with functional mobility and ADLs.) Problem List - Problem List Physical Therapy Problem List: Detail (1. Difficulty w/bed mobility. 2. Supervision/assist required for transfers. 3. Difficulty walking. 4. LE weakness 5. Decreased activity tolerance.) Occupational Therapy Problem List: Detail (1. Decreased Ind with total body dressing 2. Decreased Ind with bathing 3. Decreased endurance needed for safe and Ind ADLs. 4. Decreased Ind with functional mobility) Goals - Goals Physical Therapy Goals: GOALS MET: 1. Independent w/bed mobility and sit/stand transfers to front-wheeled walker. 2. Safely and independently ambulate over household distances/surfaces w/front-wheeled walker. 4. Independent with basic home program. GOAL PARTIALLY MET: 3. Exhibit 4/5 strength or better in major muscle groups of L LE for stability w/ambulation. Occupational Therapy Goals: Goals Met: 1. Pt will be Ind with total body dressing 2. Pt will be Ind with bathing/showering 3. Pt will be Ind with bed mobility and ambulation to allow safe and Ind ADLs. 4. Pt will demonstrate improved endurance needed for safe and Ind ADLs. Prognosis - Prognosis Good Plan - Plan Physical Therapy Plan: The PT is to discharge form [facility] on 01/13/17 to home and will receive Home PT. The patient will be seen for one more PT visit prior to discharge. Occupational Therapy Plan: Pt discharged home on 01/13/17. She will have family with her for 2 weeks. She will be receiving home OT/PT to further assess needs with IADLs.
[2017-01-12] MEDS: TEMAZEPAM 15 MG CAPSULE PO PRN (22:02)
[2017-01-12] MEDS: SIMVASTATIN 20 MG TABLET PO SCH (22:03)
[2017-01-13] MEDS: OXYCODONE HCL 5 MG TABLET PO PRN ×2 (04:10→12:38)
[2017-01-13] MEDS: PANTOPRAZOLE SODIUM 40 MG TABLET PO SCH (06:09)
[2017-01-13] MEDS: ACETAMINOPHEN 500 MG TABLET PO SCH (06:09)
[2017-01-13] MEDS: LEVOTHYROXINE SODIUM 50 MCG TABLET PO SCH (06:09)
[2017-01-13] MEDS: SENNOSIDES/DOCUSATE SODIUM UD CAPSULE PO SCH (10:47)
[2017-01-13] MEDS: POLYETHYLENE GLY 17 GM PACKET PO SCH (10:47)
[2017-01-13] MEDS: CALCIUM CARBONATE 500 MG TAB.CHEW PO SCH (10:47)
[2017-01-13] MEDS: CELECOXIB 100 MG CAPSULE PO SCH (10:47)
[2017-01-13] MEDS: ASPIRIN 325 MG TAB ENTERIC-COATED PO SCH (10:48)
[2017-01-13] MEDS: CHOLECALCIFEROL 1,000 UNIT TABLET PO SCH (10:48)
== END 2017-01-13 13:00 | disposition home health service (06) | DRG 948 ==
LOC: MEDSURG 19:08
PROVIDERS: ADMIT Family Medicine; ATTEND Family Medicine
DX: R53.81 Other malaise (principal); Z96.652 Presence of left artificial knee joint; E78.00 Pure hypercholesterolemia, unspecified; E03.9 Hypothyroidism, unspecified; Z85.3 Personal history of malignant neoplasm of breast; Z78.9 Other specified health status
CPT/HCPCS: 97110; 97165; 97530; 97535; 99306; 99316